=== PATIENT | male | born 1980 | race Two or more races ===

== ENCOUNTER 2017-12-22 23:02 | Emergency (ER) | payer SELFPAY ==
--- NOTE | 2017-12-23 06:52 | ED ---
Glenn Garnica Tecjoon, scribed for Erik Amin MD on 12/22/17 at 2341 . Psychiatric Complaint - HPI Summary HPI Summary: This patient is a 37 year old BIBA to [facility] for mental health evaluation. Patient presented to [facility] with paranoia and scattered thoughts. Patient was agitated and uncooperative and was sedated. Patient was then transferred from [place] for mental health evaluation. HPI Limited due to Level 5 Caveat: AMS - History Of Current Complaint Chief Complaint: EDMentalHealth Time Seen by Provider: 12/22/17 23:09 Hx Obtained From: EMS Hx From Patient Unobtainable Due To: Altered Mental Status Onset/Duration: Lasting Hours, Still Present Timing: Constant Character: Anxious Associated Signs And Symptoms: Positive: Paranoid Behavior - Allergies/Home Medications Allergies/Adverse Reactions: Allergies Allergy/AdvReac Type Severity Reaction Status Date / Time No Known Allergies Allergy Verified 12/22/17 23:23 PMH/Surg Hx/FS Hx/Imm Hx Previously Healthy: Yes - PMHx limited due to Level 5 Caveat: AMS Opthamlomology History: Denies: Hx Legally Blind EENT History: Denies: Hx Deafness Infectious Disease History: No Infectious Disease History: Denies: Traveled Outside the [place] in Last 30 Days - Family History Family History: FHx limited due to level 5 caveat: AMS - Social History Substance Use Type: Reports: Heroin, Other Substance Use Comment - Amount & Last Used: meth, suboxone Smoking Status (MU): Unknown if Ever Smoked Review of Systems Negative: Fever Positive: Anxious All Other Systems Reviewed And Are Negative: No - Comments Additional Review of Systems Comments: ROS limited due to level 5 caveat: AMS Physical Exam - Summary Physical Exam Summary: GENERAL: Patient is responsive to deep touch. HEAD AND FACE: No signs of trauma. No ecchymosis, hematomas or skull depressions. No sinus tenderness. NEURO: Unable to assess due to AMS SKIN: Dry and warm PE Limited due to Level 5 Caveat: AMS Triage Information Reviewed: No Vital Signs On Initial Exam: Initial Vitals Temp Pulse Resp BP Pulse Ox 98.0 F 91 14 84/49 97 12/22/17 23:05 12/22/17 23:05 12/22/17 23:05 12/22/17 23:05 12/22/17 23:05 Vital Signs Reviewed: No Completion Of Physical Exam Limited Due To: Altered Mental Status, Level 5 Diagnostics - Vital Signs Vital Signs Temp Pulse Resp BP Pulse Ox 12/22/17 23:05 98.0 F 91 14 84/49 97 - Laboratory Lab Statement: Any lab studies that have been ordered have been reviewed, and results considered in the medical decision making process. Course/Dx - Course Course Of Treatment: This patient is a 37 year old BIBA to [facility] for mental health evaluation. Patient presented to [facility] with paranoia and scattered thoughts. Patient was agitated and uncooperative and was sedated. Patient was then transferred from [place] for mental health evaluation. Patient will be signed out to Dr. Marshall at the end of the shift, awaiting MHE. - Differential Dx/Clinical Impression Provider Diagnosis: Agitation Discharge - Discharge Plan Condition: Fair Disposition: OTHER Discharge Disposition Comment: Signed out to Dr. Marshall at end of shift. The documentation as recorded by the Glenn taylor Tecjoon accurately reflects the service I personally performed and the decisions made by , Erik Amin MD.
[2017-12-23] MEDS ORDERED: LORazepam TAB(*) 1 MG PO ONE (07:35)
[2017-12-23] MEDS ORDERED: LORazepam TAB(*) 1 MG ONE (07:37)
[2017-12-23 12:07] VITALS: BP 98/63
--- NOTE | 2017-12-24 19:37 | ED ---
Prince Garnica Natalie, scribed for Lela Murphy MD on 12/23/17 at 0746 . Progress - Progress Note Progress Note: The patient is a sign-out from Dr. Amin, awaiting E. At change of shift, I came to speak with the patient concerning his visit. When asked why the patient is here, he said he was spazing out and losing his damn mind. He was unaware that he was in [place]; he thought he was still at [facility]. He states he has had problems before with alcohol and cocaine. On 12/22/17 at 02:00, the patient nasally ingested methamphetamine. He said, I took one bump. When asked specifically, the patient has no SI or HI. He denies any previous thoughts of suicide, but he has had episodes of hallucinations even when not taking drugs. He takes Suboxone and Adderall as prescribed by Dr. Hair in [place]. His mother was diagnosed with schizophrenia. The patient was not raised by his mother. He does not have any allergies. He has had osteomyelitis of left clavicle. Nursing states that [facility] are aware of the patients status at 0742. On exam, pt is alert Ox3, calm, cooperative, denies SI/HI. HEENT NC/AT, neg, neck supple, Cor S1 S2, lungs clear, Abd benign, Extrem, without calf tenderness or edema, Skin no rash or ecchymoses. Neuro: A O x 3, no focal deficit, ambulatory without limp without assistance, moves all extremities well. - Consult/PCP Time Called: 07:42 - I spoke with bárbara Moreno ethnoarchaeologist, who said he will come see the patient now. Consult Reason/Comments: Nursing staff stated pt was becoming agitated. He was given 1mg Ativan PO. - Additional EKG/XRAY/Consults Time Called: 09:08 - I spoke with Jenna from the Mental Health Unit concerning the patient's status. Course/Dx - Course Course Of Treatment: This patient is a 37 year old BIBA to [facility] for mental health evaluation. Patient presented to [facility] with paranoia and scattered thoughts. Patient was agitated and uncooperative and was sedated. Patient was then transferred from [place] for mental health evaluation. Patient will be signed out to Dr. Rolando at the end of the shift, awaiting MHE. ON DR MURPHY'S SHIFT 0700 12/23/17: Pt was seen by Jenna psychiatric ethnoarchaeologist for mental health evaluation , who spoke with Dr. Kim, who stated pt is safe for discharge. - Diagnoses Provider Diagnoses: Agitation, Substance abuse, Psychosis The documentation as recorded by the Prince taylor Natalie accurately reflects the service I personally performed and the decisions made by me, Lela Murphy MD.
== END 2017-12-23 12:06 | disposition home or self-care (01) ==
LOC: ED 23:02
DX: R45.1 Restlessness and agitation (principal); F19.10 Other psychoactive substance abuse, uncomplicated; F29 Unspecified psychosis not due to a substance or known physiological condition
CPT/HCPCS: 99285; A9270-GY